=== PATIENT | female | born 1985 | race Caucasian/White ===

== ENCOUNTER 2019-02-06 08:38 | Emergency (ER) | payer SELFPAY ==
[2019-02-06] MEDS ORDERED: Ondansetron ODT 8 MG TAB ONE (08:55)
== END 2019-02-06 09:30 | disposition home or self-care (01) ==
LOC: SCSER 08:38
DX: R11.2 Nausea with vomiting, unspecified (principal); M79.10 Myalgia, unspecified site; E03.9 Hypothyroidism, unspecified; J45.909 Unspecified asthma, uncomplicated; F41.9 Anxiety disorder, unspecified; F17.210 Nicotine dependence, cigarettes, uncomplicated; Z79.899 Other long term (current) drug therapy; Z79.51 Long term (current) use of inhaled steroids
CPT/HCPCS: 87804; 99283

== ENCOUNTER 2019-04-06 14:13 | Emergency (ER) | payer SELFPAY | END 2019-04-06 15:28 | disposition home or self-care (01) | LOC: SCSER 14:13 | DX: J02.9 Acute pharyngitis, unspecified (principal); R21 Rash and other nonspecific skin eruption | CPT/HCPCS: 87081; 87430; 99283 ==

== ENCOUNTER 2019-05-13 15:03 | Emergency (ER) | payer SELFPAY ==
[2019-05-13] MEDS ORDERED: Lidocaine 1% PF 5 ML VIAL ONE (15:49)
[2019-05-13] MEDS ORDERED: cefTRIAXone\\ROCEPHIN 250 MG VIAL ONE (15:49)
[2019-05-13 16:02] LABS: Pregnancy Test - Urine (BHCG) Negative (Negative); Pregu Control Background? CLEAR/WHITE (CLR/WHITE); Pregu Control Bar Appear? YES (CONTROL BAR); Specific Gravity 1.019 (1.002-1.036)
[2019-05-16 00:27] LABS: Chlam.trachomatis by PCR,Urine Not Detected (NotDetected)
== END 2019-05-13 16:16 | disposition home or self-care (01) ==
LOC: SCSER 15:03
DX: N89.8 Other specified noninflammatory disorders of vagina (principal); R10.9 Unspecified abdominal pain; F41.9 Anxiety disorder, unspecified; J45.909 Unspecified asthma, uncomplicated; M10.9 Gout, unspecified; F17.200 Nicotine dependence, unspecified, uncomplicated; Z79.899 Other long term (current) drug therapy
CPT/HCPCS: 81025; 87491; 87591; 96372; 99283; J0696; J2001